=== PATIENT | female | born 1985 | race Caucasian/White ===

== ENCOUNTER 2017-09-17 20:42 | Emergency (ER) | payer SELFPAY ==
[2017-09-17 21:02] LABS: Bilirubin Negative (Negative); Blood, Urine Moderate (Negative); Clarity Clear (Clear); Glucose, Urine (Dipstick) Negative (Negative); Leukocyte Negative (Negative); Nitrite Negative (Negative); Protein, Urine (Dipstick) Negative (Neg-Trace); Specific Gravity, Urine 1.025 (1.005-1.030)
[2017-09-17 21:10] LABS: Bacteria/HPF Rare-Few HPF (None Seen); Other Microscopic Description FEW CLUE CELLS; Squamous Epithelial 0-3 HPF (0-3); WBC/HPF 0-3 HPF (0-3)
[2017-09-17 21:19] LABS: Pregnancy Test - Urine (BHCG) Negative (Negative); Pregu Control Background? CLEAR/WHITE (CLR/WHITE); Pregu Control Bar Appear? YES (CONTROL BAR); Specific Gravity 1.027 (1.002-1.036)
--- NOTE | 2017-09-17 23:48 | CT ---
CT ABDOMEN AND PELVIS WITH CONTRAST 09/17/[address] of the abdomen and pelvis was performed for evaluation of abdominal pain. Axial slices were acquired, then coronal reconstructions were done. The lung bases are clear. The liver, spleen, pancreas, adrenal glands, kidneys, gallbladder and abdom inal aorta all appear normal. There is no distention of bowel to suggest obstruction. No inflammatory changes are seen around bowel. No free air or free fluid was present. The appendix appears normal. CT of the pelvis shows no pelvic masses, fluid collections or inflammatory changes. No specific adnex al abnormalities were seen, though ultrasound would probably be more sensitive to such. IMPRESSION: No significant abdominal or pelvic findings to explain the patient's pain. POS: HOME
[2017-09-21 00:53] LABS: Chlamydia by PCR Not Detected (NotDetected); GC by PCR Not Detected (NotDetected)
== END 2017-09-17 22:23 | disposition home or self-care (01) ==
LOC: BURERS 20:42
DX: F45.8 Other somatoform disorders (principal); R10.2 Pelvic and perineal pain; F17.200 Nicotine dependence, unspecified, uncomplicated
CPT/HCPCS: 74177; 81003; 81015; 81025; 87086; 87491; 87591

== ENCOUNTER 2022-03-08 11:13 | Emergency (ER) | payer OTHER, SELFPAY | END 2022-03-08 12:08 | disposition home or self-care (01) | LOC: BURERS 11:13 | DX: H60.93 Unspecified otitis externa, bilateral (principal); H60.12 Cellulitis of left external ear; F17.200 Nicotine dependence, unspecified, uncomplicated | CPT/HCPCS: 99283 ==